=== PATIENT | female | born 1955 | race Two or more races ===

== ENCOUNTER 2022-10-02 10:23 | Observation (INO) | payer OTHER ==
[2022-10-02] MEDS ORDERED: METOCLOPRAMIDE HCL INJECTION 10 MG/2 ML VIAL IVPUSH ONE (11:11)
[2022-10-02] MEDS ORDERED: MECLIZINE HCL 12.5 MG TABLET PO ONE (11:11)
[2022-10-02] MEDS ORDERED: LACTATED RINGERS SOLUTION 1000 ML INFUS.BAG IV ONE (11:11)
[2022-10-02] MEDS ORDERED: METOCLOPRAMIDE HCL INJECTION 10 MG/2 ML VIAL ONE (11:25)
[2022-10-02] MEDS ORDERED: MECLIZINE HCL 12.5 MG TABLET ONE (11:25)
[2022-10-02 11:40] LABS: BASO % 0.8 % (0-2.0); EOS % 0.2 % (0-4.5); HEMATOCRIT 38.8 % (32.4-45.2); HEMOGLOBIN 12.5 GM/dL (10.7-15.3); LYMPH % 15.3 % (8-40); MCH 27.9 pg (25.7-33.7); MCHC 32.3 g/dl (32.0-36.0); MEAN CELL VOLUME 86.4 fl (80-96); MEAN PLT VOLUME 9.3 fl (7.5-11.1); MONO % 3.7 % (3.8-10.2); PLATELET COUNT 319 10^3/uL (134-434); RBC 4.49 M/mm3 (3.60-5.2); RDW 15.5 % (11.6-15.6); WHITE BLOOD COUNT 12.7 K/mm3 (4.0-10.0)
[2022-10-02 11:52] LABS: INR 1.01 (0.83-1.09); PROTHROMBIN TIME (PATIENT) 11.7 SEC (9.7-13.0)
[2022-10-02 12:05] LABS: CALCIUM 8.8 mg/dL (8.5-10.1)
[2022-10-02 12:06] LABS: ALBUMIN 3.5 g/dl (3.4-5.0); BLOOD UREA NITROGEN 16.1 mg/dL (7-18); MAGNESIUM 1.6 mg/dL (1.8-2.4)
[2022-10-02 12:09] LABS: CREATININE 0.7 mg/dL (0.55-1.3)
[2022-10-02 12:10] LABS: BILIRUBIN,TOTAL 0.5 mg/dL (0.2-1); TOT PROT 6.6 g/dl (6.4-8.2)
[2022-10-02] MEDS ORDERED: MAGNESIUM SULFATE IN WATER 2 GM/50 ML IVPB IVPB ONE (12:26)
[2022-10-02] MEDS ORDERED: MAGNESIUM SULF 50% (8.12 MEQ/2 ML-1 GM VIAL) IVPB ONE (12:26)
[2022-10-02] MEDS ORDERED: LORazepam 2 MG/ML SDV VIAL IVPUSH ONE (13:00)
[2022-10-02] MEDS ORDERED: ASPIRIN 81 MG CHEWABLE TABLETS PO ONE (13:10)
[2022-10-02] MEDS ORDERED: ASPIRIN 81 MG CHEWABLE TABLETS ONE (13:15)
[2022-10-02 15:48] VITALS: BMI 58.4
[2022-10-02] MEDS: HEPARIN NA (PORCINE) 5,000 UNITS/ML 1ML VIAL SQ SCH (21:47)
[2022-10-02] MEDS ORDERED: ROSUVASTATIN CA 5 MG TABLET PO SCH (22:00)
[2022-10-03 05:58] VITALS: RESP 18
[2022-10-03 08:13] LABS: BASO % 1.3 % (0-2.0); EOS % 1.8 % (0-4.5); HEMATOCRIT 37.3 % (32.4-45.2); HEMOGLOBIN 12.2 GM/dL (10.7-15.3); LYMPH % 30.9 % (8-40); MCHC 32.8 g/dl (32.0-36.0); MEAN CELL VOLUME 88.5 fl (80-96); MEAN PLT VOLUME 9.3 fl (7.5-11.1); MONO % 6.2 % (3.8-10.2); NEUT % 59.8 % (42.8-82.8); PLATELET COUNT 329 10^3/uL (134-434); RBC 4.21 M/mm3 (3.60-5.2); RDW 15.7 % (11.6-15.6); WHITE BLOOD COUNT 8.7 K/mm3 (4.0-10.0)
[2022-10-03] MEDS ORDERED: ASPIRIN COATED 81 MG TABLET.EC PO SCH (10:00)
[2022-10-03] MEDS ORDERED: LOSARTAN POTASSIUM 50 MG TABLET PO SCH (10:00)
[2022-10-03] MEDS: HEPARIN NA (PORCINE) 5,000 UNITS/ML 1ML VIAL SQ SCH (10:56)
[2022-10-03] MEDS ORDERED: MECLIZINE HCL 12.5 MG TABLET PO SCH (12:00)
[2022-10-03 13:53] VITALS: BP 151/95; PULSE 71; TEMP 98.5
[2022-10-03] MEDS ORDERED: metoPROLOL SUCCINATE 25 MG TAB.SR.24H (FP) PO SCH (15:00)
== END 2022-10-03 16:00 | disposition home or self-care (01) ==
LOC: JER 10:23 → JERBED 13:14 → J4S 15:32
PROVIDERS: ADMIT Family Medicine; ATTEND Family Medicine
PROC: 3E033GC Introduction of Other Therapeutic Substance into Peripheral Vein, Percutaneous Approach (ICD-10-PCS; principal; 2022-10-02)
PROC: 3E0337Z Introduction of Electrolytic and Water Balance Substance into Peripheral Vein, Percutaneous Approach (ICD-10-PCS; 2022-10-02)
DX: R93.0 Abnormal findings on diagnostic imaging of skull and head, not elsewhere classified (principal); R42 Dizziness and giddiness; I10 Essential (primary) hypertension; E11.9 Type 2 diabetes mellitus without complications; E78.5 Hyperlipidemia, unspecified; Z79.84 Long term (current) use of oral hypoglycemic drugs
CPT/HCPCS: 36415; 70450-TC; 70551-TC; 71045-TC-FY; 80053; 80061; 82607; 82962; 83036; 83735; 84443; 84484; 85025; 85610; 93005; 93010; 93306-TC; 96372; 96374; 96375; 97116-GP; 97161-GP; 99285-25; C9803-CS; G0378; J1644; U0003; U0005

== ENCOUNTER → 2024-06-02 | Day surgery (SDC) | payer OTHER | END | disposition home or self-care (01) | LOC: JRADUS-SUR 11:26 | PROVIDERS: ATTEND Internal Medicine | PROC: 0H9U3ZX Drainage of Left Breast, Percutaneous Approach, Diagnostic (ICD-10-PCS; principal; 2024-06-02) | DX: N63.20 Unspecified lump in the left breast, unspecified quadrant (principal) | CPT/HCPCS: 19083; 76942-TC; 77065-TC; 87899; 88305-TC; A4648 ==